=== PATIENT | female | born 1945 | race Caucasian/White ===

== ENCOUNTER 2017-03-08 09:10 | Outpatient (CLI) | payer MEDICARE | END 2017-03-08 09:11 | disposition home or self-care (01) | LOC: BICBD 09:10 | PROVIDERS: ATTEND Internal Medicine | DX: Z12.31 Encounter for screening mammogram for malignant neoplasm of breast (principal); M81.0 Age-related osteoporosis without current pathological fracture | CPT/HCPCS: 77063; 77067; 77080 ==

== ENCOUNTER 2017-06-03 16:10 | Emergency (ER) | payer MEDICARE ==
--- NOTE | 2017-06-03 17:04 | RAD ---
PORTABLE AP CHEST X-RAY 06/03/17 HISTORY: Dyspnea. COMPARISON: 05/26/15 FINDINGS: The cardiac silhouette and pulmonary vasculature are within normal limits. The lungs are clear. Again noted is hiatal hernia in the lower aspect of the mediastinum with air fluid level visualized on cony or exam. There is adjacent atelectasis at the medial left lung base. The lungs are otherwise clear. N o other interval change from prior exam. IMPRESSION: 1. No acute cardiopulmonary process. 2. Stable hiatal hernia. POS: [facility]
[2017-06-03 17:58] LABS: #Eosinphils 0.2 thou/uL (0.0-0.7); #Lymphocytes 1.3 thou/uL (1.20-3.40); #Monocytes 0.5 thou/uL (0.11-0.59); #Neutrophils 2.7 thou/uL (1.40-6.50); %Basophils 0.6 % (0.0-1.0); %Eosinophils 3.5 % (0.0-10.0); %Monocytes 10.9 % (0.0-10.0); Hemoglobin 10.4 g/dL (12.0-16.0); Mean Corpuscular HGB CONC 33.2 g/dL (32.0-36.0); Mean Corpuscular Volume 96.3 fl (81.0-99.0); Mean Platelet Volume 6.3 fL (7.4-10.4); Platelet Count 259 thou/uL (130-400); Red Blood Cell (RBC) Count 3.24 mill/uL (4.20-5.40); White Blood Cell (WBC) Count 4.6 thou/uL (4.8-10.8)
[2017-06-03] MEDS ORDERED: Azithromycin 250 MG TAB ONE (18:07)
[2017-06-03] MEDS ORDERED: Dexamethasone 10 MG/ML VIAL ONE (18:09)
[2017-06-03 18:19] LABS: ALT (SGPT) 14 U/L (8-55); AST (SGOT) 20 U/L (5-34); Albumin 3.9 g/dL (3.4-4.8); Alkaline Phosphatase 87 U/L (40-150); Anion Gap 11 mmol/L (10-20); BUN (Urea Nitrogen) 22 mg/dL (9.8-20.1); Bilirubin, Total 0.2 mg/dL (0.2-1.2); Calc. Creatinine Clearance 0 mL/min (70-130); Calcium 8.6 mg/dL (7.8-10.44); Carbon Dioxide 24 mmol/L (23-31); Chloride 108 mmol/L (98-107); Estimated GFR-MDRD 48; Globulin 2.5 g/dL (2.4-3.5); Glucose 101 mg/dL (83-110); Potassium 4.3 mmol/L (3.5-5.1); Protein, Total 6.4 g/dL (6.0-8.3); Sodium 139 mmol/L (136-145)
== END 2017-06-03 19:07 | disposition home or self-care (01) ==
LOC: ERS 16:10
DX: R05 Cough (principal); E78.5 Hyperlipidemia, unspecified
CPT/HCPCS: 36415; 71045; 80053; 83880; 85025; 93005; J1100; J7620

== ENCOUNTER 2018-07-13 07:46 | Outpatient (CLI) | payer MEDICARE ==
[2018-07-13] MEDS ORDERED: Gadobenate Dimeglumine 529 MG/1 ML (20ML VIAL) ONE (09:00)
--- NOTE | 2018-07-13 11:15 | MRI ---
MRI Brain W WO Con: 07/13/2018 12:00 AM CLINICAL HISTORY: Multiple sclerosis. COMPARISON: None. FINDINGS: Extra axial spaces: Normal in size and morphology for the patient's age. Acute infarction: None. Ventricular system: Normal in size and morphology for the patient's age. Basal cisterns: Normal. Cerebral parenchyma: Multifocal bilateral cerebral parenchymal, as well as callosal, signal abnormali ties are present demonstrating T2 and FLAIR hyperintensity. Midline shift: None. Cerebellum: Normal. Brainstem: Normal. Paranasal sinuses:Clear Intraaxial Enhancement: No pathologic enhancement Developmental venous anomaly is present within the right frontal lobe. IMPRESSION:Multifocal parenchymal signal abnormalities, in keeping with provided history of multiple sclerosis. No enhancement to indicate active demyelinating lesions.
--- NOTE | 2018-07-13 11:15 | MRI ---
Exam: MRI CERVICAL SPINE WITH AND WITHOUT CONTRAST: HISTORY: Evaluate for multiple sclerosis. COMPARISON: 12/17/2014. FINDINGS: Appropriate T1 marrow signal intensity of the cervical vertebra. Cervical spine vertebral body height is maintained. No fracture. Stable straightening of normal cervical lordosis. No significant STIR hyperintensity to suggest vertebral body edema or ligamentous injury. Visualized brain parenchyma, cervicomedullary junction, cervical cord, and the upper thoracic cord hull ve a normal size and signal intensity. On the postcontrast images, there is no abnormal enhancement with regards to the vertebral bodies. Th ere is no abnormal intramedullary enhancement. There is no epidural fibrosis. C2-C3: No significant central canal stenosis or neural foraminal narrowing. C3-C4: No significant central canal stenosis or neural foraminal narrowing. C4-C5: Broad-based disc osteophyte complex effaces the ventral subarachnoid space. Mild mass effect u kristen the cord with cervical cord deformity. No abnormal signal intensity in the cord. Mild to moderate central canal stenosis. Minimal bilateral foraminal narrowing due to uncovertebral hypertrop hy. C5-C6: Broad-based disc osteophyte complex abuts the thecal sac. Ventral subarachnoid space is still maintained. Mild central canal stenosis. Mild flattening of the ventral cervical cord. No cord hyperintensity. Mild right foraminal narrowing. Left neural foramen is patent. C6-C7: Broad-based disc osteophyte complex without significant central canal stenosis. Moderate bilat eral foraminal narrowing due to uncovertebral hypertrophy. C7-T1: No significant central canal stenosis. Neural foramina are patent bilaterally. IMPRESSION: 1. Degenerative changes of the cervical spine as detailed above. 2. No evidence of cord T2 hyperintensity. No MR evidence of a demyelinating plaque. No evidence of en hancement to suggest active demyelination. Transcribed Date/Time: 07/13/2018 11:57 AM
--- NOTE | 2018-07-13 11:25 | MRI ---
Exam: MRI THORACIC SPINE WITH AND WITHOUT CONTRAST: HISTORY: Multiple sclerosis. COMPARISON: None FINDINGS: Appropriate T1 marrow signal intensity of the thoracic vertebra. Thoracic spine vertebral body height is maintained. No fracture. No significant STIR hyperintensity to suggest vertebral body edema or ligamentous injury. Postcontrast images demonstrate appropriate enhancement of the vertebral bodies Abnormal T1 mixed signal intensity, T2 hyperintensity along the posterior aspect of the mediastinum w hich may represent herniated fat associated with a hiatal hernia. There is an intrinsic T1 hyperintense lesion emanating from the mid right renal cortex measuring 1.1 x 0.9 cm. Complex/hemorrh agic cyst may be present. Limited evaluation due to technique. Additional right renal lesions are incompletely assessed. Dependent atelectatic changes lung parenchyma. Minimal generalized disc bulge at T6-T7 and T3-T4. No significant central canal stenosis or neural fo raminal narrowing throughout the thoracic spine. The thoracic cord has a normal size and signal intensity. No cord T2 hyperintensity. No enhancement. No restricted diffusion. IMPRESSION: 1. No cord signal abnormality. 2. No significant central canal stenosis or foraminal narrowing. 3. Possible hiatal hernia with fat in the posterior mediastinum. Correlate clinically. 4. Abnormal signal intensities in the right kidney, incompletely evaluated. 5. With regards to the presumed hiatal hernia and right kidney lesions, abdomen CT is recommended. Re nal mass protocol can be utilized. CODE T Transcribed Date/Time: 07/13/2018 12:04 PM
== END 2018-07-13 07:47 | disposition home or self-care (01) ==
LOC: SCSMRI 07:46
PROVIDERS: ATTEND Nurse Practitioner Acute Care
DX: G35 Multiple sclerosis (principal); N28.89 Other specified disorders of kidney and ureter; R93.421 Abnormal radiologic findings on diagnostic imaging of right kidney
CPT/HCPCS: 70553; 72156; 72157; 82565; A9577

== ENCOUNTER 2018-11-14 08:29 | Outpatient (CLI) | payer MEDICARE ==
--- NOTE | 2018-11-14 09:02 | MMO ---
Bilateral MAMMO Bilat Screen [facility]. CLINICAL HISTORY: Patient is 73 years old and is seen for screening. The patient has no family history of breast cancer. The patient has no personal history of cancer. The patient has a history of bilateral Excisional Biopsy at age 39 - benign. VIEWS: The views performed were: bilateral craniocaudal with tomosynthesis and bilateral mediolateral oblique with tomosynthesis. FILMS COMPARED: The present examination has been compared to prior imaging studies performed at [facility] on 02/10/2014, 02/17/2015, 01/19/2016 and 03/08/2017. This study has been interpreted with the assistance of computer-aided detection. MAMMOGRAM FINDINGS: There are scattered fibroglandular densities. There are stable benign appearing calcifications seen in both breasts. There are also vascular calcifications. There are no suspicious masses, suspicious calcifications, or new areas of architectural distortion. IMPRESSION: THERE IS NO MAMMOGRAPHIC EVIDENCE OF MALIGNANCY. A ROUTINE FOLLOW-UP MAMMOGRAM IN 1 YEAR IS RECOMMENDED. THE RESULTS OF THIS EXAM WERE SENT TO THE PATIENT. ACR BI-RADS Category 2 - Benign finding MAMMOGRAPHY NOTE: 1. A negative mammogram report should not delay a biopsy if a dominant of clinically suspicious mass is present. 2. Approximately 10% to 15% of breast cancers are not detected by mammography. 3. Adenosis and dense breasts may obscure an underlying neoplasm. Reported by: PITO LAINEZ MD Electonically Signed: [id number]
== END 2018-11-14 08:30 | disposition home or self-care (01) ==
LOC: BICMAMMO 08:29
PROVIDERS: ATTEND Internal Medicine
DX: Z12.31 Encounter for screening mammogram for malignant neoplasm of breast (principal)
CPT/HCPCS: 77063; 77067

== ENCOUNTER 2018-11-19 10:40 | Outpatient (CLI) | payer MEDICARE ==
--- NOTE | 2018-11-19 13:19 | MRI ---
MRI BRAIN WITH AND WITHOUT IV CONTRAST: Date: 11/19/18 HISTORY: Multiple sclerosis. COMPARISON: 07/13/18. FINDINGS: Multiple foci of T2 prolongation in the periventricular and pericallosal regions. No pathologic enhan cement is identified to suggest active demyelination. The developmental venous anomaly in the right f rontal lobe is again seen. Lesion burden is stable. No evidence of infarct, hemorrhage, mass, midline shift, or abnormal extra-axial fluid collections ar e seen. No restricted diffusion is noted. The ventricular size is normal and the basilar cisterns are patent. Visualized paranasal sinuses and mastoid air cells are well aerated. IMPRESSION: Findings are consistent with multiple sclerosis, without evidence of active demyelination. POS: OFF
== END 2018-11-19 10:41 | disposition home or self-care (01) ==
LOC: SCSMRI 10:40
PROVIDERS: ATTEND Nurse Practitioner Acute Care
DX: G35 Multiple sclerosis (principal)
CPT/HCPCS: 70553; 82565

== ENCOUNTER 2019-11-19 09:24 | Outpatient (CLI) | payer MEDICARE ==
--- NOTE | 2019-11-19 11:38 | MMO ---
Bilateral MAMMO Bilat Screen [facility]. CLINICAL HISTORY: Patient is 74 years old and is seen for screening. The patient has no family history of breast cancer. The patient has no personal history of cancer. The patient has a history of bilateral Excisional Biopsy at age 39 - benign. VIEWS: The views performed were: bilateral craniocaudal with tomosynthesis and bilateral mediolateral oblique with tomosynthesis. FILMS COMPARED: The present examination has been compared to prior imaging studies performed at [facility] on 02/17/2015, 01/19/2016, 03/08/2017 and 11/14/2018. This study has been interpreted with the assistance of computer-aided detection. MAMMOGRAM FINDINGS: There are scattered fibroglandular densities. Benign calcifications are noted bilaterally. There are no suspicious masses, suspicious calcifications, or new areas of architectural distortion. IMPRESSION: THERE IS NO MAMMOGRAPHIC EVIDENCE OF MALIGNANCY. A ROUTINE FOLLOW-UP MAMMOGRAM IN 1 YEAR IS RECOMMENDED. THE RESULTS OF THIS EXAM WERE SENT TO THE PATIENT. ACR BI-RADS Category 2 - Benign finding MAMMOGRAPHY NOTE: 1. A negative mammogram report should not delay a biopsy if a dominant of clinically suspicious mass is present. 2. Approximately 10% to 15% of breast cancers are not detected by mammography. 3. Adenosis and dense breasts may obscure an underlying neoplasm. Reported by: JON KRAFT MD Electonically Signed: [id number]
== END 2019-11-19 09:25 | disposition home or self-care (01) ==
LOC: BICMAMMO 09:24
PROVIDERS: ATTEND Internal Medicine
DX: Z12.31 Encounter for screening mammogram for malignant neoplasm of breast (principal)
CPT/HCPCS: 77063; 77067

== ENCOUNTER 2020-11-24 08:55 | Outpatient (CLI) | payer MEDICARE | END 2020-11-24 08:56 | disposition home or self-care (01) | LOC: BICMAMMO 08:55 | PROVIDERS: ATTEND Internal Medicine | DX: Z12.31 Encounter for screening mammogram for malignant neoplasm of breast (principal); Z91.89 Other specified personal risk factors, not elsewhere classified | CPT/HCPCS: 77063; 77067 ==

== ENCOUNTER 2021-03-16 08:22 | Outpatient (CLI) | payer MEDICARE | END 2021-03-16 08:23 | disposition home or self-care (01) | LOC: MRI 08:22 | PROVIDERS: ATTEND Nurse Practitioner Acute Care | DX: G35 Multiple sclerosis (principal); M47.812 Spondylosis without myelopathy or radiculopathy, cervical region; R90.82 White matter disease, unspecified | CPT/HCPCS: 70553; 72156; 72157 ==

== ENCOUNTER 2021-12-07 09:07 | Outpatient (CLI) | payer MEDICARE | END 2021-12-07 09:08 | disposition home or self-care (01) | LOC: BICMAMMO 09:07 | PROVIDERS: ATTEND Internal Medicine | DX: Z12.31 Encounter for screening mammogram for malignant neoplasm of breast (principal); Z91.89 Other specified personal risk factors, not elsewhere classified | CPT/HCPCS: 77063; 77067 ==

== ENCOUNTER 2023-01-03 12:51 | Outpatient (CLI) | payer MEDICARE | END 2023-01-03 12:52 | disposition home or self-care (01) | LOC: BICMAMMO 12:51 | PROVIDERS: ATTEND Internal Medicine | DX: Z12.31 Encounter for screening mammogram for malignant neoplasm of breast (principal); Z91.89 Other specified personal risk factors, not elsewhere classified | CPT/HCPCS: 77063; 77067 ==

== ENCOUNTER 2023-04-20 18:54 | Inpatient (IN) | payer MEDICARE ==
[~2023-04-20 18:54] MED LIST: Iopamidol-370 76% 500 ML MDV (1 ML CHARGE) ONE
[2023-04-20 20:06] LABS: #Eosinphils 0.1 thou/uL (0.0-0.7); #Monocytes 0.4 thou/uL (0.11-0.59); %Basophils 0.7 % (0.0-1.0); %Lymphocytes 34.4 % (21.0-51.0); %Monocytes 7.4 % (0.0-10.0); %Neutrophils 55.3 % (42.0-75.0); Hemoglobin 11.7 g/dL (12.0-16.0); Mean Corpuscular HGB CONC 31.6 g/dL (32.0-36.0); Mean Corpuscular Hemoglobin 30.2 pg (27.0-31.0); Mean Corpuscular Volume 95.6 fl (78.0-98.0); Mean Platelet Volume 8.9 fL (7.4-10.4); Platelet Count 287 10x3/uL (130-400); RBC Distribution Width 14.4 % (11.5-14.5); Red Blood Cell (RBC) Count 3.87 mill/uL (4.20-5.40); White Blood Cell (WBC) Count 5.4 10x3/uL (4.8-10.8)
[2023-04-20 20:30] LABS: Troponin I Less than 0.010 ng/mL (< 0.028)
[2023-04-20 20:32] LABS: ALT (SGPT) 14 U/L (8-55); AST (SGOT) 22 U/L (5-34); Albumin 4.4 g/dL (3.4-4.8); Alkaline Phosphatase 84 U/L (40-110); Anion Gap 15 mmol/L (10-20); BUN (Urea Nitrogen) 20 mg/dL (9.8-20.1); Bilirubin, Total 0.3 mg/dL (0.2-1.2); Calc. Creatinine Clearance 0 mL/min (70-130); Calcium 9.4 mg/dL (7.8-10.44); Carbon Dioxide 26 mmol/L (23-31); Chloride 105 mmol/L (98-107); Estimated GFR 54; Globulin 2.7 g/dL (2.4-3.5); Glucose 104 mg/dL (83-110); Lipase 41 U/L (8-78); Potassium 4.2 mmol/L (3.5-5.1); Protein, Total 7.1 g/dL (5.8-8.1); Sodium 142 mmol/L (136-145)
[2023-04-20] MEDS ORDERED: Aspirin 81 mg Enteric Coated Tablet ONE (20:36)
[2023-04-20] MEDS ORDERED: Ondansetron PF 4 MG/2 ML Vial ONE (20:37)
[2023-04-20] MEDS ORDERED: Morphine 4 MG/ML VIAL ONE (20:37)
[2023-04-20] MEDS ORDERED: Aspirin Chewable 81 MG TAB ONE ×2 (20:38→21:04)
[2023-04-21 00:21] LABS: Bacteria/HPF None Seen HPF (None Seen); Bilirubin Negative (Negative); Blood, Urine Negative (Negative); CAUTI Indications for Culture Pelvic or flank pain; Clarity Clear (Clear); Glucose, Urine (Dipstick) Normal (Negative); Ketone, Urine Negative (Negative); Leukocyte 500 Leu/uL (Negative); Nitrite Negative (Negative); Protein, Urine (Dipstick) Negative (Neg-Trace); Specific Gravity, Urine 1.048 (1.002-1.036); Squamous Epithelial 0-3 HPF (0-3); Urobilinogen Normal mg/dL (Less than 2); pH, Urine 6.5 (5.0-9.0)
[2023-04-21 00:23] LABS: Urine Culture Reflex No No
[2023-04-21 01:03] LABS: Troponin I 0.014 ng/mL (< 0.028)
[2023-04-21 07:00] LABS: Troponin I Less than 0.010 ng/mL (< 0.028)
[2023-04-21] MEDS ORDERED: Aspirin 325 MG TAB ONE ×2 (09:55→09:58)
[2023-04-21 10:39] VITALS: BMI 14.6
[2023-04-21] MEDS: Aspirin 325 mg Enteric Coated Tablet PO SCH (10:45)
[2023-04-21] MEDS: Sodium Chloride 0.9% 1,000 ML IV SCH (17:56)
[2023-04-22 05:29] LABS: #Eosinphils 0.2 thou/uL (0.0-0.7); #Monocytes 0.4 thou/uL (0.11-0.59); #Neutrophils 2.2 thou/uL (1.40-6.50); %Basophils 0.9 % (0.0-1.0); %Eosinophils 3.7 % (0.0-10.0); %Lymphocytes 35.6 % (21.0-51.0); %Neutrophils 50.6 % (42.0-75.0); Hematocrit 34.7 % (36.0-47.0); Hemoglobin 10.6 g/dL (12.0-16.0); Mean Corpuscular HGB CONC 30.5 g/dL (32.0-36.0); Mean Corpuscular Volume 98.3 fl (78.0-98.0); Mean Platelet Volume 8.8 fL (7.4-10.4); Platelet Count 217 10x3/uL (130-400); RBC Distribution Width 14.5 % (11.5-14.5); Red Blood Cell (RBC) Count 3.53 mill/uL (4.20-5.40); White Blood Cell (WBC) Count 4.3 10x3/uL (4.8-10.8)
[2023-04-22 05:49] LABS: ALT (SGPT) 11 U/L (8-55); AST (SGOT) 16 U/L (5-34); Albumin 3.5 g/dL (3.4-4.8); Alkaline Phosphatase 64 U/L (40-110); Anion Gap 10 mmol/L (10-20); BUN (Urea Nitrogen) 14 mg/dL (9.8-20.1); Bilirubin, Total 0.5 mg/dL (0.2-1.2); Calc. Creatinine Clearance 30 mL/min (70-130); Calcium 8.5 mg/dL (7.8-10.44); Carbon Dioxide 26 mmol/L (23-31); Chloride 112 mmol/L (98-107); Estimated GFR 65; Globulin 2.1 g/dL (2.4-3.5); Glucose 89 mg/dL (83-110); Magnesium 2.1 mg/dL (1.6-2.6); Potassium 4.6 mmol/L (3.5-5.1); Protein, Total 5.6 g/dL (5.8-8.1); Sodium 143 mmol/L (136-145)
[2023-04-22] MEDS ORDERED: PROPOFOL 20 ML ONE ×2 (12:37→12:56)
[2023-04-22] MEDS ORDERED: Glycopyrrolate 0.2 MG/ML 5 ML SYRINGE ONE (12:49)
[2023-04-22 15:34] VITALS: BP 138/60; TEMP 97.5
== END 2023-04-22 16:46 | disposition home or self-care (01) | DRG 384 ==
LOC: ERS 18:54 → ERHOLD 23:48 → 2SW 04-21 17:45 → OBSVTOIN 04-22 12:25
PROVIDERS: ADMIT Hospitalist; ATTEND Hospitalist
PROC: 0DB98ZX Excision of Duodenum, Via Natural or Artificial Opening Endoscopic, Diagnostic (ICD-10-PCS; principal; 2023-04-22)
PROC: 0DB68ZX Excision of Stomach, Via Natural or Artificial Opening Endoscopic, Diagnostic (ICD-10-PCS; 2023-04-22)
DX: K25.9 Gastric ulcer, unspecified as acute or chronic, without hemorrhage or perforation (principal); K44.9 Diaphragmatic hernia without obstruction or gangrene; Z79.899 Other long term (current) drug therapy; Z88.1 Allergy status to other antibiotic agents; Z88.8 Allergy status to other drugs, medicaments and biological substances; G35 Multiple sclerosis; Z90.49 Acquired absence of other specified parts of digestive tract; Z98.49 Cataract extraction status, unspecified eye; Z90.710 Acquired absence of both cervix and uterus; E78.00 Pure hypercholesterolemia, unspecified
CPT/HCPCS: 36415; 71045; 71275; 74174; 80053; 81001; 83605; 83690; 83735; 83880; 84484; 85025; 87040; 88305; 93005; 93306; 94760; 96361; 96374; 96375; G0378; J2270; J2405; J2704; J7050; Q9967

== ENCOUNTER 2024-01-05 08:42 | Outpatient (CLI) | payer MEDICARE | END 2024-01-05 08:43 | disposition home or self-care (01) | LOC: BICMAMMO 08:42 | PROVIDERS: ATTEND Internal Medicine | DX: Z12.31 Encounter for screening mammogram for malignant neoplasm of breast (principal); Z91.89 Other specified personal risk factors, not elsewhere classified | CPT/HCPCS: 77063; 77067 ==

== ENCOUNTER 2024-11-25 08:27 | Emergency (ER) | payer MEDICARE ==
[2024-11-25] MEDS ORDERED: Ketorolac Tromethamine 30 MG (1 mL) VIAL ONE (08:55)
[2024-11-25] MEDS ORDERED: Methocarbamol 500 MG TAB ONE (09:13)
== END 2024-11-25 11:13 | disposition home or self-care (01) ==
LOC: ERS 08:27
DX: S33.5XXA Sprain of ligaments of lumbar spine, initial encounter (principal); M54.41 Lumbago with sciatica, right side; I10 Essential (primary) hypertension; E78.5 Hyperlipidemia, unspecified; Z79.899 Other long term (current) drug therapy; X58.XXXA Exposure to other specified factors, initial encounter
CPT/HCPCS: 72131; J1885; 96372